=== PATIENT | female | born 1965 | race Caucasian/White ===

== ENCOUNTER 2025-02-24 10:18 | Emergency (ER) | payer OTHER, SELFPAY ==
[2025-02-24 10:19] VITALS: BP 134/75; PULSE 81; RESP 14; TEMP 36.6; O2SAT 98; BMI 26.2
--- NOTE | 2025-02-24 10:35 | CT_ITS ---
PROCEDURE: ABDOMEN/PELVIS W IV CONT ONLY 02/24/2025 REASON FOR EXAM: RIGHT LOWER QUADRANT PAIN TECHNIQUE: Procedure Code: [id number] Modality: CT Procedure: ABDOMEN/PELVIS W IV CONT ONLY Coronal and Sagittal reconstruction series were provided. CONTRAST: Isovue 370 VOLUME: 99 mL One or more dose reduction techniques were used (e.g., Automated exposure control, adjustment of the mA and/or kV according to patient size, use of iterative reconstruction technique. RADIATION DOSE SUMMARY: CTDlvol: 13 mGy DLP: 497 mGycm COMPARISON: None FINDINGS: Lung bases: Clear Liver: Normal except for some focal fat near the interlobar fissure. Gallbladder: Normal Spleen: Normal Pancreas: Normal Adrenals: Normal Kidneys: Normal. No collecting system dilation. Bladder: Normal Reproductive Organs: Hysterectomy Bowel: Mild sliding hiatus hernia. Small bowel is normal. Colon is unremarkable. Appendix: Normal Lymph nodes: No lymphadenopathy. Vasculature: Normal Peritoneum / Retroperitoneum: No free air, free fluid or mass. Bones: Mild lower lumbar facet hypertrophy. CT/Abdomen/Pelvis W IV Cont ONLY IMPRESSION: Normal appendix. Diverticulosis without diverticulitis. Hysterectomy Reading Location: [id number]
--- NOTE | 2025-02-24 10:36 | ED.VIS.GI ---
HPI HPI - GI History of Present Illness Chief Complaint: Abd Pain Narrative Narrative: 60-year-old female past medical history of mitral valve regurgitation, previous diverticulitis on the left side, presents with right lower quadrant abdominal pain that she has had intermittently over the last week. However, 2 days ago on Sunday it began again to become more frequent and more intense. Past medical history/surgical history does include partial hysterectomy when she was 35 years old secondary to cervical carcinoma. She states that whenever she tries to urinate, afterwards she has pain in the right lower quadrant. She denies any dark urine or hematuria. No fevers or chills, no nausea or vomiting. No exacerbating or alleviating factors. Her last normal bowel movement was yesterday. She states when she tries to have a bowel movement, it also intensifies her pain so she cannot have a bowel movement today. PFSH PFSH Allergy/AdvReac Type Severity Reaction Status Date / Time No Known Allergies Allergy Verified 02/24/25 11:10 Social History Smoking Status: Unknown if ever smoked ROS ROS ED ROS Narrative Review of systems positive for right lower quadrant abdominal pain. No fevers or chills, no nausea or vomiting. No dysuria or hematuria. No diarrhea. No exacerbating or alleviating factors. Intermittent over the last week, but more frequent and intense over the last 2 days. EXAM Physical Exam Narrative Exam Narrative: Afebrile. Vital signs noted. Nontoxic-appearing. Cardiovascular examination reveals a regular rate and rhythm. Lungs are clear to auscultation bilaterally. The abdomen is soft with mild tenderness to palpation in the right lower quadrant over McBurney's point. No guarding or rebound. Negative Rovsing sign. Negative Mcclellan sign. Neurological examination is nonfocal, nonlateralizing. Const Vital Signs: 02/24/25 10:19 02/24/25 11:19 02/24/25 12:09 Temperature 98 F Temperature Source Temporal Pulse Rate 81 66 55 L Respiratory Rate 14 14 13 Blood Pressure 134/75 H 133/79 H 138/69 H Blood Pressure Mean 94 97 92 Pulse Ox 98 100 100 Oxygen Delivery Method Room Air Room Air Room Air 02/24/25 13:00 Temperature Temperature Source Pulse Rate 66 Respiratory Rate 15 Blood Pressure 124/68 H Blood Pressure Mean 86 Pulse Ox 97 Oxygen Delivery Method Room Air MDM MDM MDM Narrative Medical decision making narrative: The differential diagnosis includes but not limited to right-sided diverticulitis versus acute appendicitis versus ovarian cyst as she has had partial hysterectomy. Ureterolithiasis with ureteral colic is also in the differential diagnosis as well. Comprehensive workup was pursued. She was administered morphine and ondansetron for analgesia. I reviewed her laboratory work and she has normal white count of 5.3 with hemoglobin normal at 14.5, hematocrit 42.6, platelet count normal at 263. Sodium normal at 140 with potassium 4.1, chloride 103, BUN of 9 and creatinine 0.93. LFTs are normal. Lipase normal at 35 so I doubt pancreatitis. Urinalysis is negative for infection, negative for ketones 0 WBCs and 0 bacteria. I do not feel antibiotics are indicated. I reviewed the radiology report of the CT of the abdomen and pelvis. She is status post hysterectomy. She has diverticulosis but no evidence of diverticulitis. Appendix appears normal. At this point in time, I am unsure as to the cause of her right lower quadrant pain, but I do not feel she needs emergent surgical intervention nor do I feel that she requires admission to the hospital. She was given ketorolac 30 mg intravenously. I feel she can be discharged to follow-up with her primary care provider. She will take [id number] analgesics as needed. Return instructions to the emergency department were reviewed. Disposition is discharged home in stable condition. History & Record Review Discussion w/independent historian: Patient and Family Additional record(s) reviewed:: No prior records (No prior emergency department visits) Lab Data Attestation: I reviewed the patient's lab results. Labs: Laboratory Results - last 24 hr 02/24/25 02/24/25 10:45 11:40 WBC 5.3 RBC 4.60 Hgb 14.5 Hct 42.6 MCV 92.6 MCH 31.5 MCHC 34.0 RDW Std Deviation 40.6 RDW Coeff of Raghu 12.0 Plt Count 263 MPV 9.5 Immature Gran % (Auto) 0.400 Neut % (Auto) 62.2 Lymph % (Auto) 27.8 [place] % (Auto) 6.9 Eos % (Auto) 1.7 Baso % (Auto) 1.0 Absolute Neuts (auto) 3.3 Absolute Lymphs (auto) 1.46 Nucleated RBC % 0 Sodium 140 Potassium 4.1 Chloride 103 Carbon Dioxide 24.6 Anion Gap 12 BUN 9 Creatinine 0.93 Estim Creat Clear Calc 57.78 Est GFR (MDRD) Non-Af 71 BUN/Creatinine Ratio 9.3 L Glucose 107 H Calcium 9.8 Total Bilirubin 0.83 AST 26 ALT 30 Alkaline Phosphatase 74 Total Protein 7.8 Albumin 4.5 Globulin 3.3 Albumin/Globulin Ratio 1.3 Lipase 35 Urine Color Yellow Urine Clarity Clear Urine pH 8.0 Ur Specific [place] 1.010 Urine Protein Negative Urine Glucose (UA) Normal Urine Ketones Negative Urine Occult Blood Negative Urine Nitrite Negative Urine Bilirubin Negative Urine Urobilinogen Normal Ur Leukocyte Esterase Negative Urine RBC 0 SEEN Urine WBC 0 SEEN Ur Squamous Epith Cells 0 SEEN Urine Bacteria 0 SEEN Urine Mucus 0 SEEN Radiography Diagnostic Testing: Clinical Impression(s) from Imaging Studies Abdomen/Pelvis CT 02/24/25 10:35 IMPRESSION: Normal appendix. Diverticulosis without diverticulitis. Hysterectomy Reading Location: [facility] Discharge Plan Triage Chief Complaint: Abd Pain ED Provider: Alexander De Leon Dx/Rx/DC Orders Clinical Impression: Right lower quadrant abdominal pain, Nonspecific abdominal pain Instructions: ED Abdominal Pain Unkn Cause Fem Primary Care Provider: EDITH SHETH Referrals: EDITH SHETH [Other] - 3-5 Days if not improving Activity Restrictions/Additional Instructions: Follow-up with your primary care provider. Return with fever, increasing pain, new or worsening symptoms. Print Language: Libyan Disposition Disposition: Home, Self Care
[2025-02-24 10:54] LABS: Hematocrit 42.6 % (37-47); Hemoglobin 14.5 g/dL (12.0-15.0); Immature Granulocytes Count 0.020 X10^3/uL (0.0-0.0); Mean Corp Hgb Conc 34.0 g/dL (32-36); Mean Corpuscular Volume 92.6 fL (81-99); Mean Platelet Vol. 9.5 fl (6.2-12.0); NRBC Flagged by Analyzer 0 % (0-5); Platelet Count 263 K/mm3 (150-450); RBC Distribution Width CV 12.0 % (11.6-14.6); RBC Distribution Width SD 40.6 fl (35.1-43.9); Red Blood Count 4.60 M/mm3 (4.2-5.4); White Blood Count 5.3 K/mm3 (4.4-11.0)
[2025-02-24 11:19] VITALS: BP 133/79; PULSE 66; RESP 14; O2SAT 100
[2025-02-24] MEDS: 0.9% Normal Saline (1000mL) 1,000 ML 999 ML IV (11:22)
[2025-02-24 11:54] LABS: Mucous, Urine 0 SEEN /hpf (<or=2+); Red Blood Cells-Urine 0 SEEN /hpf (0-5); Squamous Epithelial Cells - UA 0 SEEN /hpf (5-10)
[2025-02-24 11:55] LABS: Color, Urine Yellow (Yellow); Glucose, Dipstick Normal (Normal); Ketone-Dipstick Negative (Negative); Leukocyte Esterase-Dipstick Negative /ul (Negative); Nitrite-Dipstick Negative (Negative); Occult Blood-Urine Negative /ul (Negative); Protein-Dipstick Negative (Negative); Specific Gravity, Urine 1.010 (1.002-1.030); Urine Bilirubin Dipstick Negative (Negative)
[2025-02-24 12:09] VITALS: BP 138/69; PULSE 55; RESP 13; O2SAT 100
[2025-02-24 12:21] LABS: AST(SGOT) 26 U/L (<=31); Alanine Aminotransfer ALT/SGPT 30 U/L (<=34); Albumin, Serum 4.5 g/dL (3.4-4.8); Alkaline Phosphatase 74 U/L (35-104); Anion Gap 12 (5-15); BUN 9 mg/dL (4-19); BUN/Creat Ratio 9.3 RATIO (10-20); Calcium,Total 9.8 mg/dL (7.6-11.0); Carbon Dioxide 24.6 mmol/L (21.0-32.0); Chloride 103 mmol/L (98-108); Estimated Creatinine Clearance 57.78 ml/min (50-250); Globulin 3.3 g/dL (2.2-4.2); Glucose 107 mg/dL (70-99); Lipase 35 U/L (13-75); Potassium 4.1 mmol/L (3.3-5.1)
[2025-02-24 13:00] VITALS: BP 124/68; PULSE 66; RESP 15; O2SAT 97
[2025-02-24] MEDS: Ketorolac 30 MG/ML Syringe IV (14:14)
[2025-02-24 14:30] VITALS: BP 141/78; PULSE 60; RESP 17; TEMP 36.8; O2SAT 96
== END 2025-02-24 14:35 | disposition home or self-care (01) ==
PROVIDERS: Emergency Provider Emergency Medicine; Visit Provider Emergency Medicine
DX: R10.31 Right lower quadrant pain (principal); K57.30 Diverticulosis of large intestine without perforation or abscess without bleeding; I34.0 Nonrheumatic mitral (valve) insufficiency; Z87.19 Personal history of other diseases of the digestive system; Z85.41 Personal history of malignant neoplasm of cervix uteri; Z90.710 Acquired absence of both cervix and uterus
CPT/HCPCS: 74177; 80053; 81001; 83690; 85025; 96361; 96374; 99283; Q9967; A4216; J2405